=== PATIENT | female | born 1965 | race American Indian/Alaskan Native ===

== ENCOUNTER 2016-12-30 10:06 | Emergency (ER) | payer MEDICAID ==
[2016-12-30 10:14] VITALS: BMI 38.2
[2016-12-30 11:37] VITALS: BP 144/87; PULSE 71; RESP 18; TEMP 99.1; O2SAT 99
--- NOTE | 2016-12-30 11:49 | C.PDOC ---
History Of Present Illness 51 yr old female presents to the ER with complaints of sore throat, right ear pain and productive cough with clear sputum for the past 2 weeks. Patient states she was seen by her PMD, Dr. Handley, was given cough medication and Azithromax for 5 days and ear drops. Patient reports the ear pain has improved but the cough and sore throat persists. Patient denies fever, chest pain, SOB, nausea, vomiting, headache, weakness or numbness. Time Seen by Provider: 12/30/16 10:17 Chief Complaint (Nursing): ENT Problem History Per: Patient History/Exam Limitations: no limitations Onset/Duration Of Symptoms: Persistent (2 weeks) Sick Contacts (Context): None Past Medical History Reviewed: Historical Data, Nursing Documentation, Vital Signs Vital Signs: Last Vital Signs Temp 99.1 F 12/30/16 11:37 Pulse 71 12/30/16 11:37 Resp 18 12/30/16 11:37 BP 144/87 12/30/16 11:37 Pulse Ox 99 12/30/16 11:50 - Medical History PMH: Hiatal Hernia ([place]), HTN, Migraine - [facility] Procedures ESOPHAGOGASTRODUODENOSCOPY [EGD] W/CLOSED BIOPSY (03/15/15) Family History: States: No Known Family Hx - Social History Hx Alcohol Use: No Hx Substance Use: No - Immunization History Hx Tetanus Toxoid Vaccination: No Hx Influenza Vaccination: Yes Hx Pneumococcal Vaccination: No Review Of Systems Except As Marked, All Systems Reviewed And Found Negative. Constitutional: Negative for: Fever ENT: Positive for: Ear Pain (right ear ), Throat Pain (Sore throat ) Cardiovascular: Negative for: Chest Pain Respiratory: Positive for: Cough, Sputum (clear ). Negative for: Shortness of Breath Gastrointestinal: Negative for: Nausea, Vomiting Neurological: Negative for: Weakness, Numbness, Headache Physical Exam - Physical Exam Appears: Non-toxic, No Acute Distress Skin: Warm, Dry, No Rash Head: Atraumatic, Normacephalic Eye(s): bilateral: Normal Inspection, PERRL, EOMI Ear(s): Left: Normal, Right: Other (White residue at the TM due to ear drops. No TM buldging. No canal buldging. ) Nose: Normal Oral Mucosa: Moist Tongue: Normal Appearing, No Lesions Throat: Erythema (Pharangeal ), No Exudate, No Drooling, No Mass Neck: Normal, Normal ROM, Supple Chest: Symmetrical, No Tenderness Cardiovascular: Rhythm Regular, No Murmur Respiratory: Decreased Breath Sounds (In the right lungs ), No Rales, No Stridor , No Wheezing Extremity: Normal ROM, No Swelling Neurological/Psych: Oriented x3, Normal Speech, Normal Motor ED Course And Treatment O2 Sat by Pulse Oximetry: 99 - Radiology CXR: Interpreted by Me, Viewed By Me CXR Interpretation: Yes: No Acute Disease. No: Infiltrates, Pnemothorax Medical Decision Making Medical Decision Making: PLAN: * CXR * Influenza * Rapid Strep Disposition Counseled Patient/Family Regarding: Studies Performed, Diagnosis, Need For Followup, Rx Given - Disposition Referrals: Eric Handley MD [Primary Care Provider] - Disposition Time: 11:45 Additional Instructions: FOLLOW UP WITH YOUR DOCTOR IN 1-2 DAYS USE MEDICATION NEEDED DRINK PLENTY OF FLUIDS RETURN TO ER IF SYMPTOMS WORSEN Prescriptions: Phenol/Glycerin [Chloraseptic Max [place]] 1 spray MM Q6 PRN #1 spray PRN Reason: THROAT PAIN Instructions: Upper Respiratory Infection (ED) Print Language: CHINESE - POA Present On Arrival: None - Clinical Impression Clinical Impression: Upper respiratory infection, Viral disease - Scribe Statement The provider has reviewed the documentation as recorded by the Ajibmarco a Asif Provider Attestation: All medical record entries made by the Ajibmarco a were at my direction and personally dictated by me. I have reviewed the chart and agree that the record accurately reflects my personal performance of the history, physical exam, medical decision making, and the department course for this patient. I have also personally directed, reviewed, and agree with the discharge instructions and disposition.
--- NOTE | 2016-12-30 12:51 | RAD ---
HISTORY: persistent cough, r/o pneumonia COMPARISON: No prior. TECHNIQUE: Chest PA and lateral FINDINGS: LUNGS: Slight increased/ coarse interstitial markings with a few scattered peribronchial cuffing changes. Findings could represent sequela of reactive/ inflammatory joint disease or viral illness. PLEURA: No significant pleural effusion identified. No pneumothorax apparent. CARDIOVASCULAR: Normal. OSSEOUS STRUCTURES: Minor degenerative changes both shoulder girdles VISUALIZED UPPER ABDOMEN: Normal. OTHER FINDINGS: None. IMPRESSION: Slight increased/ coarse interstitial markings with a few scattered peribronchial cuffing changes. Findings could represent sequela of reactive/ inflammatory joint disease or viral illness.
== END 2016-12-30 12:11 | disposition home or self-care (01) ==
LOC: C.ER 10:06 → SUPCPDRO 10:06 → C.ER 12:11
DX: J06.9 Acute upper respiratory infection, unspecified (principal)

== ENCOUNTER 2019-03-04 12:04 | Outpatient (CLI) | payer MEDICAID | END 2019-03-04 12:05 | disposition home or self-care (01) | LOC: C.RADH 12:04 | DX: R05 Cough (principal) ==